=== PATIENT | male | born 1950 ===

== ENCOUNTER 2017-04-26 10:42 | Outpatient (CLI) | payer MEDICARE, BC ==
--- NOTE | 2017-04-26 16:05 | Diagnostic Imaging Report ---
Indication: COUGH Technique: Two views of the chest Comparison: none Findings: The lungs and pleural spaces are clear. The heart size is normal. Is. The bones are unremarkable Impression: Negative
== END 2017-04-26 12:42 | disposition home or self-care (01) ==
LOC: RAD 10:42
DX: R05 Cough (principal)
CPT/HCPCS: 71020